=== PATIENT | female | born 1960 | race Caucasian/White ===

== ENCOUNTER 2021-06-15 19:58 | Inpatient (IN) ==
[2021-06-15] MEDS ORDERED: Ondansetron ODT 4 MG TAB.RAPDIS SL PRN (21:00)
[2021-06-15] MEDS: risperiDONE 1 MG TABLET PO SCH (22:45)
[2021-06-15] MEDS: QUEtiapine Fumarate 100 MG TABLET PO SCH (22:45)
[2021-06-15] MEDS: Divalproex (12 HR) 250 MG TABLET PO SCH (22:45)
[2021-06-16 06:57] LABS: Basophils # 0.1 K/mcL (0.0-0.2); Basophils % 0.7 %; Eosinophils # 0.2 K/mcL (0.0-0.6); Eosinophils % 2.6 %; Hematocrit 35.9 % (35.3-44.9); Hemoglobin 11.6 g/dL (11.5-15.4); Immature Granulocytes % 5.4 % (0-4); Lymphocytes # 1.2 K/mcL (0.6-4.6); Lymphocytes % 17.1 %; Mean Corpuscular HGB Conc 32.3 g/dL (31.6-35.5); Mean Corpuscular Hemoglobin 30.3 pg (28.0-33.3); Mean Corpuscular Volume 93.7 fL (83.0-100.0); Mean Platelet Volume 10.4 fL (9.4-12.4); Monocytes # 1.1 K/mcL (0.0-1.3); Monocytes % 14.9 %; Neutrophils # 4.3 K/mcL (1.6-8.9); Platelet Count 173 K/mcL (140-400); Red Blood Count 3.83 M/mcL (3.82-4.97); Red Cell Distribution Width 14.8 % (11.5-14.5); Segmented Neutrophils % 59.3 %; White Blood Count 7.3 K/mcL (4.3-11.1)
[2021-06-16 07:14] LABS: BUN/Creatinine Ratio 8 (6-26); Blood Urea Nitrogen 7 mg/dL (6-20); Calcium 8.6 mg/dL (8.6-10.3); Carbon Dioxide 22 mEq/L (23-29); Chloride 109 mEq/L (98-107); Glucose 100 mg/dL (70-105); Osmolality,Calculated 286 (280-300); Sodium 139 mEq/L (136-145); eGFR For African Americans > 60 (> 60); eGFR For Non-African Americans > 60 (> 60)
[2021-06-16 07:42] LABS: Platelet Estimate Normal (Normal)
[2021-06-16] MEDS: risperiDONE 1 MG TABLET PO SCH ×2 (08:56→21:52)
[2021-06-16] MEDS: Cyanocobalamin (B-12) 1,000 MCG TABLET PO SCH (08:56)
[2021-06-16] MEDS: Metoprolol XL (24 HR) Succ 25 MG TAB.ER.24H PO SCH (09:01)
[2021-06-16] MEDS: Aspirin Enteric Coated 81 MG Tablet PO SCH (09:01)
[2021-06-16] MEDS: Divalproex (12 HR) 250 MG TABLET PO SCH ×2 (09:02→21:53)
[2021-06-16] MEDS: Acetaminophen 325 MG TABLET PO PRN (15:07)
[2021-06-16] MEDS: QUEtiapine Fumarate 100 MG TABLET PO SCH (21:53)
[2021-06-17] MEDS: Aspirin Enteric Coated 81 MG Tablet PO SCH (09:56)
[2021-06-17] MEDS: Metoprolol XL (24 HR) Succ 25 MG TAB.ER.24H PO SCH (09:57)
[2021-06-17] MEDS: Divalproex (12 HR) 250 MG TABLET PO SCH ×2 (09:57→20:50)
[2021-06-17] MEDS: Cyanocobalamin (B-12) 1,000 MCG TABLET PO SCH (09:57)
[2021-06-17] MEDS: risperiDONE 1 MG TABLET PO SCH ×2 (10:07→20:50)
[2021-06-17] MEDS: Acetaminophen 325 MG TABLET PO PRN (14:41)
[2021-06-17] MEDS: QUEtiapine Fumarate 100 MG TABLET PO SCH (20:50)
[2021-06-18 01:58] VITALS: PULSE 79; TEMP 98.1
[2021-06-18] MEDS ORDERED: tiZANidine 4 MG TABLET PO ONE (03:56)
[2021-06-18 07:08] VITALS: BP 119/69; RESP 15; O2SAT 94
[2021-06-18] MEDS: risperiDONE 1 MG TABLET PO SCH (09:17)
[2021-06-18] MEDS: Metoprolol XL (24 HR) Succ 25 MG TAB.ER.24H PO SCH (09:17)
[2021-06-18] MEDS: Aspirin Enteric Coated 81 MG Tablet PO SCH (09:17)
[2021-06-18] MEDS: Cyanocobalamin (B-12) 1,000 MCG TABLET PO SCH (09:18)
[2021-06-18] MEDS: Divalproex (12 HR) 250 MG TABLET PO SCH (09:18)
[2021-06-18] MEDS ORDERED: tiZANidine 4 MG TABLET PO PRN (11:49)
[2021-06-18] MEDS: Acetaminophen 325 MG TABLET PO PRN (14:36)
[2021-06-19] MEDS ORDERED: haloperidoL 5 MG TABLET PO SCH (09:00)
== END 2021-06-18 15:13 | disposition short-term general hospital (02) ==
LOC: INPPIK 20:30
PROVIDERS: ADMIT Internal Medicine; ATTEND Internal Medicine

== ENCOUNTER 2021-08-11 11:27 | Inpatient (IN) ==
[2021-08-11] MEDS ORDERED: 0.9 % Sodium Chloride 1,000 ML IVC ONE ×2 (11:51→13:09)
[2021-08-11 12:27] LABS: Bilirubin,Urine Small (Negative); Blood,Urine Large (Negative); Clarity,Urine Cloudy (Clear); Color,Urine Brown (Yellow); Glucose,Urine (UA) Normal (Normal); Ketones,Urine Negative (Negative); Leukocyte Esterase,Urine Small (Negative); Nitrite,Urine Negative (Negative); PH,Urine 6.5 pH Units (5.0-8.0); Protein,Urine >=300 mg/dL (Neg-Trace); Specific Gravity,Urine 1.025 (1.010-1.025); Urobilinogen,Urine Normal (Normal)
[2021-08-11 12:38] LABS: Amorphous Sediment,Urine Few per hpf (None-Few); Mucus,Urine Few per lpf (None-Few); RBC,Urine TNTC per hpf (0-3); Squamous Epithelial Cell,Urine Few per hpf (None-Few)
[2021-08-11 12:47] LABS: Basophils % 0.2 %; Eosinophils % 0.2 %; Hematocrit 42.1 % (35.3-44.9); Hemoglobin 13.3 g/dL (11.5-15.4); Immature Granulocytes % 0.4 % (0-4); Lymphocytes # 0.9 K/mcL (0.6-4.6); Lymphocytes % 8.3 %; Mean Corpuscular HGB Conc 31.6 g/dL (31.6-35.5); Mean Corpuscular Volume 91.9 fL (83.0-100.0); Mean Platelet Volume 9.6 fL (9.4-12.4); Monocytes # 1.5 K/mcL (0.0-1.3); Monocytes % 14.1 %; Platelet Count 193 K/mcL (140-400); Red Blood Count 4.58 M/mcL (3.82-4.97); Red Cell Distribution Width 14.2 % (11.5-14.5); Segmented Neutrophils % 76.8 %; White Blood Count 10.4 K/mcL (4.3-11.1)
[2021-08-11 12:55] LABS: INR 1.1; Prothrombin Time 12.8 Seconds (9.4-12.1)
[2021-08-11 13:03] LABS: Albumin 3.9 g/dL (3.5-5.7); Bilirubin,Total 0.4 mg/dL (0.3-1.0); Calcium 9.8 mg/dL (8.6-10.3); Globulin 4.1 g/dL (2.4-3.5); Magnesium 2.3 mg/dL (1.6-2.6); Potassium 4.5 mEq/L (3.5-5.1)
[2021-08-11 13:08] LABS: Troponin I 0.06 ng/mL (< 0.04)
[2021-08-11] MEDS ORDERED: cefTRIAXone 2,000 MG in 0.9 % Sodium Chloride Mini Bag 100 ML IVPB ONE (13:09)
[2021-08-11 13:21] LABS: Thyroid Stimulating Hormone 3.83 mcIU/mL (0.340-5.600)
[2021-08-11] MEDS ORDERED: Naloxone 0.4 MG/ML INJ IVP PRN ×2 (15:54→19:43)
[2021-08-11] MEDS ORDERED: Nitroglycerin 0.4 MG TAB.SUBL SL PRN (16:10)
[2021-08-11] MEDS ORDERED: tiZANidine 4 MG TABLET PO PRN (16:23)
[2021-08-11] MEDS: 0.9 % Sodium Chloride 1,000 ML IVC SCH ×2 (16:47→21:43)
[2021-08-11] MEDS: *HR* Heparin 5,000 UNIT/ML VIAL SQ SCH (21:17)
[2021-08-11] MEDS: QUEtiapine Fumarate 100 MG TABLET PO SCH (21:41)
[2021-08-11] MEDS: risperiDONE 1 MG TABLET PO SCH (21:42)
[2021-08-11] MEDS: Divalproex (12 HR) 250 MG TABLET PO SCH (21:42)
[2021-08-12] MEDS: *HR* Heparin 5,000 UNIT/ML VIAL SQ SCH ×2 (05:52→18:04)
[2021-08-12 07:09] LABS: Basophils % 0.3 %; Eosinophils # 0.1 K/mcL (0.0-0.6); Eosinophils % 1.9 %; Hematocrit 30.7 % (35.3-44.9); Hemoglobin 9.4 g/dL (11.5-15.4); Immature Granulocytes % 0.3 % (0-4); Lymphocytes % 26.6 %; Mean Corpuscular HGB Conc 30.6 g/dL (31.6-35.5); Mean Corpuscular Hemoglobin 28.7 pg (28.0-33.3); Mean Corpuscular Volume 93.6 fL (83.0-100.0); Mean Platelet Volume 10.2 fL (9.4-12.4); Monocytes # 1.1 K/mcL (0.0-1.3); Monocytes % 15.5 %; Neutrophils # 4.1 K/mcL (1.6-8.9); Platelet Count 153 K/mcL (140-400); Red Blood Count 3.28 M/mcL (3.82-4.97); Red Cell Distribution Width 14.5 % (11.5-14.5); Segmented Neutrophils % 55.4 %; White Blood Count 7.4 K/mcL (4.3-11.1)
[2021-08-12 07:36] LABS: BUN/Creatinine Ratio 22 (6-26); Blood Urea Nitrogen 23 mg/dL (6-20); Calcium 7.9 mg/dL (8.6-10.3); Carbon Dioxide 20 mEq/L (23-29); Chloride 114 mEq/L (98-107); Glucose 80 mg/dL (70-105); Osmolality,Calculated 293 (280-300); Potassium 3.6 mEq/L (3.5-5.1); Sodium 140 mEq/L (136-145); eGFR For African Americans > 60 (> 60); eGFR For Non-African Americans 54 (> 60)
[2021-08-12] MEDS: Metoprolol XL (24 HR) Succ 50 MG TAB.ER.24H PO SCH (09:23)
[2021-08-12] MEDS: risperiDONE 1 MG TABLET PO SCH ×2 (09:23→21:35)
[2021-08-12] MEDS: Aspirin Enteric Coated 81 MG Tablet PO SCH (09:23)
[2021-08-12] MEDS: Cyanocobalamin (B-12) 1,000 MCG TABLET PO SCH (09:23)
[2021-08-12] MEDS: Divalproex (12 HR) 250 MG TABLET PO SCH ×2 (09:23→21:35)
[2021-08-12] MEDS: cefTRIAXone 1,000 MG in 0.9 % Sodium Chloride Mini Bag 100 ML IVPB SCH (09:24)
[2021-08-12] MEDS: QUEtiapine Fumarate 100 MG TABLET PO SCH (21:35)
[2021-08-13] MEDS: *HR* Heparin 5,000 UNIT/ML VIAL SQ SCH ×2 (05:54→16:41)
[2021-08-13 06:40] LABS: Basophils % 0.5 %; Eosinophils # 0.2 K/mcL (0.0-0.6); Hemoglobin 9.6 g/dL (11.5-15.4); Immature Granulocytes % 0.5 % (0-4); Lymphocytes # 1.6 K/mcL (0.6-4.6); Lymphocytes % 25.3 %; Mean Corpuscular Hemoglobin 28.9 pg (28.0-33.3); Mean Corpuscular Volume 93.4 fL (83.0-100.0); Mean Platelet Volume 9.8 fL (9.4-12.4); Monocytes # 0.8 K/mcL (0.0-1.3); Monocytes % 13.4 %; Neutrophils # 3.6 K/mcL (1.6-8.9); Platelet Count 144 K/mcL (140-400); Red Blood Count 3.32 M/mcL (3.82-4.97); Red Cell Distribution Width 14.3 % (11.5-14.5); Segmented Neutrophils % 57.3 %; White Blood Count 6.3 K/mcL (4.3-11.1)
[2021-08-13 07:00] LABS: BUN/Creatinine Ratio 17 (6-26); Blood Urea Nitrogen 16 mg/dL (6-20); Calcium 8.2 mg/dL (8.6-10.3); Carbon Dioxide 21 mEq/L (23-29); Chloride 111 mEq/L (98-107); Glucose 84 mg/dL (70-105); Osmolality,Calculated 284 (280-300); Potassium 3.6 mEq/L (3.5-5.1); Sodium 137 mEq/L (136-145); eGFR For African Americans > 60 (> 60); eGFR For Non-African Americans 59 (> 60)
[2021-08-13] MEDS: Divalproex (12 HR) 250 MG TABLET PO SCH ×2 (09:58→20:42)
[2021-08-13] MEDS: risperiDONE 1 MG TABLET PO SCH ×2 (09:59→20:42)
[2021-08-13] MEDS: cefTRIAXone 1,000 MG in 0.9 % Sodium Chloride Mini Bag 100 ML IVPB SCH (09:59)
[2021-08-13] MEDS: Aspirin Enteric Coated 81 MG Tablet PO SCH (09:59)
[2021-08-13] MEDS: Metoprolol XL (24 HR) Succ 50 MG TAB.ER.24H PO SCH (09:59)
[2021-08-13] MEDS: Cyanocobalamin (B-12) 1,000 MCG TABLET PO SCH (09:59)
[2021-08-13] MEDS ORDERED: Moderna Covid-19 Vaccine 100MCG/0.5mL IM ONE (14:28)
[2021-08-13 16:53] LABS: Influenza A PCR Negative (Negative); Influenza B PCR Negative (Negative); Resp. Syncytial Virus PCR Negative (Negative)
[2021-08-13 17:08] LABS: SARS-CoV-2 by PCR (In House) Negative (Negative)
[2021-08-13] MEDS: QUEtiapine Fumarate 100 MG TABLET PO SCH (20:42)
[2021-08-13] MEDS: Cefdinir 300 MG CAPSULE PO SCH (20:43)
[2021-08-14] MEDS ORDERED: Moderna Covid-19 Vaccine 100MCG/0.5mL IM ONE (05:00)
[2021-08-14] MEDS: *HR* Heparin 5,000 UNIT/ML VIAL SQ SCH (05:34)
[2021-08-14 06:34] VITALS: O2SAT 95
[2021-08-14] MEDS: Cefdinir 300 MG CAPSULE PO SCH (09:29)
[2021-08-14] MEDS: Metoprolol XL (24 HR) Succ 50 MG TAB.ER.24H PO SCH (09:29)
[2021-08-14] MEDS: Aspirin Enteric Coated 81 MG Tablet PO SCH (09:29)
[2021-08-14] MEDS: Cyanocobalamin (B-12) 1,000 MCG TABLET PO SCH (09:29)
[2021-08-14] MEDS: Divalproex (12 HR) 250 MG TABLET PO SCH (09:29)
[2021-08-14] MEDS: risperiDONE 1 MG TABLET PO SCH (09:30)
[2021-08-14 10:57] VITALS: BP 99/63; PULSE 66; RESP 16; TEMP 98
== END 2021-08-14 13:04 | DRG 683 ==
LOC: INPPIK 11:27 → EMEROOPIK 11:27 → INPPIK 18:15
PROVIDERS: ADMIT Internal Medicine; ATTEND Internal Medicine